=== PATIENT | female | born 1950 | race Caucasian/White ===

== ENCOUNTER 2021-10-15 10:35 | Outpatient (CLI) | payer MEDICARE, BC | END 2021-10-15 10:36 | disposition home or self-care (01) | LOC: CSHMAMMO 10:35 | PROVIDERS: ATTEND Internal Medicine | DX: Z12.31 Encounter for screening mammogram for malignant neoplasm of breast (principal) | CPT/HCPCS: 77063; 77067 ==

== ENCOUNTER 2023-01-01 14:44 | Outpatient (CLI) | payer MEDICARE, BC | END 2023-01-01 14:45 | disposition home or self-care (01) | LOC: CSHMAMMO 14:44 | PROVIDERS: ATTEND Family Medicine | DX: Z12.31 Encounter for screening mammogram for malignant neoplasm of breast (principal) | CPT/HCPCS: 77063; 77067 ==

== ENCOUNTER 2023-11-27 12:41 | Emergency (ER) | payer OTHER, MEDICARE | END 2023-11-27 15:08 | disposition home or self-care (01) | LOC: CSHERS 12:41 | DX: S82.042A Displaced comminuted fracture of left patella, initial encounter for closed fracture (principal); I10 Essential (primary) hypertension; E11.9 Type 2 diabetes mellitus without complications; W01.0XXA Fall on same level from slipping, tripping and stumbling without subsequent striking against object, initial encounter; Z79.02 Long term (current) use of antithrombotics/antiplatelets ==

== ENCOUNTER 2024-01-27 12:36 | Outpatient (CLI) | payer MEDICARE | END 2024-01-27 12:37 | disposition home or self-care (01) | LOC: CSHMAMMO 12:36 | PROVIDERS: ATTEND Family Medicine | DX: Z12.31 Encounter for screening mammogram for malignant neoplasm of breast (principal) | CPT/HCPCS: 77063; 77067 ==